=== PATIENT | female | born 1975 | race Caucasian/White ===

== ENCOUNTER → 2016-08-23 | Outpatient (CLI) | payer OTHER ==
--- NOTE | 2016-08-23 15:51 | DI ---
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 Previous Exam: 07/04/2007. Sequences: Sagittal T1and T2 weighted. Axial T2 PLUS and FE 3D DUAL. Coronal T1 scans through the p er cervical spine. An additional motion corrected axial T2-weighted FSE sequence was also performed b ecause of motion artifacts on the other sequences. The vertebral bodies are of normal height and size. There are motion artifacts on several sequences a nd adjustments were attempted and the best sequences were saved for this study. There is disc space n arrowing at C4-5 and C5-6. All cervical disc spaces show desiccation change. The cervical cord has a slightly increased signal intensity between C2 and C6 on the sagittal motion corrected T2 sequence. H owever, the axial FE 3-D dual sequence shows a normal appearance of the cord with normal appearance o f the anterior and posterior horns throughout this entire length. The findings on the sagittal scan a re felt to represent motion artifacts. The C2-3 and C3-4 disc spaces are normal. C4-5 and C5-[address] central mild bulging but not herniated discs without canal or neural foraminal stenosis. The C6-7 through T4-5 disc spaces are normal. Readin. There are some technical limitations of the study because of extensive motion artifacts. Multiple sequences were repeated or altered aorta to complete the exam. 2. The appearance of a slight increased signal intensity in the midportion of the cervical cord is f elt to be related to motion artifact. The cerebellar tonsils are normal. 3. There are bulging but not herniated discs without canal or neural foraminal stenosis at C4-5 and C5-6. 4. The disc spaces at C2-3, C3-4, and C6-7 through T4-5 are normal.
--- NOTE | 2016-08-23 16:05 | DI ---
MRI THORACIC SPINE SCAN, 08/23/2016 8:01 AM: Clinical History: Thoracic spondlyloarthritis. Previous Exam: None. Technique: Sagittal T1 and T2 weighted and STIR scans are supplemented with an axial T1 and T2 weight ed scans between T1-T12. The vertebral bodies are of normal height and size. The disc spaces of normal height except between T 7-8 through T9-10 that also show desiccation. The thoracic cord and the conus medullaris are normal. There are no extradural lesions. There are no intradural extramedullary or intramedullary lesions. Readin. There is mild disc space narrowing between T7-8 through T9-10. 2. There are no extradural lesions and there are no intradural extramedullary or intramedullary lesi ons.
== END ==
LOC: MRI 07:54
PROVIDERS: ATTEND Internal Medicine
DX: M47.812 Spondylosis without myelopathy or radiculopathy, cervical region (principal); M46.84 Other specified inflammatory spondylopathies, thoracic region
CPT/HCPCS: 72141; 72146

== ENCOUNTER 2016-09-07 06:58 | Day surgery (SDC) | payer OTHER ==
[~2016-09-07 06:58] MED LIST: LIDOCAINE W/ SODIUM BICARB 0.5 ML SYR ONE; Lactated Ringers 1,000 ML PRIMARY IV ONE
[2016-09-07] MEDS ORDERED: MIDAZOLAM 5 MG/1 ML ONE (07:02)
[2016-09-07] MEDS ORDERED: fentaNYL Inj 100 MCG/2 ML VIAL ONE (07:02)
--- NOTE | 2016-09-07 08:37 | GEN.OPNOTE ---
Colonoscopy Procedure Note Surgery Date: 09/07/16 Preoperative Diagnosis: Family history of colon cancer Postoperative Diagnosis: Family history of colon cancer. Normal-appearing colon Procedure: Colonoscopy Surgeon: Johnathan Miguel MD Anesthesia Provider: Cesar Abdalla CRNA Anesthesia Type: MAC Indications: Patient has a family history of colon cancer Findings: Prep : Very good Cecum : Olympus video colonoscopy scope inserted all way to the cecum and ileocecal valve clearly identified. Patient had normal-appearing cecum Ascending : Ascending colons within normal limits no polyps tumors or cancers Transverse : Transverse colon was within normal limits no polyps tumors or cancers Sigmoid : Descending colon free from disease. Sigmoid colon had liquid stools and it. This was aspirated out. Cannot find any evidence of polyps or tumors. Rectum : Rectum free from disease Digital Rectal Exam : Small external hemorrhoid A lubricated flexible colonoscope was inserted and passed to the blind end of the cecum. Additional Details: Patient with a colonoscopy every 5 years
[2016-09-07 11:27] VITALS: RESP 12
[2016-09-07 13:22] VITALS: TEMP 98.5
== END 2016-09-07 09:19 | disposition home or self-care (01) ==
LOC: SDSC 06:58
PROVIDERS: ATTEND Surgery
DX: Z80.0 Family history of malignant neoplasm of digestive organs (principal)
CPT/HCPCS: 45378; J2704; J3010; J2250; J7120